=== PATIENT | female | born 1960 | race Caucasian/White ===

== ENCOUNTER 2017-06-26 12:33 | Emergency (ER) | payer BC, OTHER ==
--- NOTE | 2017-06-26 12:46 | EDM.PDOC ---
ED HPI GENERAL MEDICAL PROBLEM - General Chief Complaint: Chest Pain Stated Complaint: CHEST PAIN Time Seen by Provider: 06/26/17 12:46 Source of Information: Reports: Patient History Limitations: Reports: No Limitations - History of Present Illness INITIAL COMMENTS - FREE TEXT/NARRATIVE: Patient is a 57 y/o female who presents to the E.D. c/o of pain to just under the left breast. Pain is constant dull in nature. Pain radiates to her back. No known precipitating factor that make the pain worse or better. Has been taking tylenol with some relief. Patient states she is a anxious person. Drinks about 8-10 beers starting in the afternoon daily. She smokes 1.5 packs of cigarettes daily. History of HTN and takes lisinopril and amlodipine. States last drink was last night. She is craving for a beer as we speak. She has been in treatment for alcohol three different times. Has no history of CAD. Denies SOB, Dizziness, palpitations, abdominal pain, acid reflux, dysuria , or history of pancreatitis. 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 Left Chest Pain Score (Numeric/FACES): 10 - Related Data Allergies Allergy/AdvReac Type Severity Reaction Status Date / Time azithromycin Allergy Rash Verified 06/26/17 12:42 Home Meds: Home Meds Lisinopril 20 mg PO DAILY 06/26/17 [History] amLODIPine Besylate [Amlodipine Besylate] 5 mg PO DAILY 06/26/17 [History] Past Medical History Cardiovascular History: Reports: Hypertension - Past Surgical History HEENT Surgical History: Reports: Eye Surgery Female Surgical History: Reports: Hysterectomy Social & Family History - Tobacco Use Smoking Status *Q: Current Every Day Smoker Years of Tobacco use: 20 Packs/Tins Daily: 1.5 - Caffeine Use Caffeine Use: Reports: Coffee - Alcohol Use Days Per Week of Alcohol Use: 7 Number of Drinks Per Day: 8 Total Drinks Per Week: 56 - Recreational Drug Use Recreational Drug Use: No ED ROS GENERAL - Review of Systems Review Of Systems: ROS reveals no pertinent complaints other than HPI. ED EXAM, GENERAL - Physical Exam Exam: See Below Exam Limited By: No Limitations General Appearance: Alert, WD/WN, Anxious Ears: Normal External Exam, Hearing Grossly Normal Nose: Normal Inspection Throat/Mouth: Normal Inspection, Normal Oropharynx, Normal Voice, No Airway Compromise Neck: Normal Inspection, Supple Respiratory/Chest: No Respiratory Distress, Lungs Clear, Normal Breath Sounds, No Accessory Muscle Use, Other (Pain noted to the left anterior chest and under the left breast worse with palpation. No bony abnormalities. No bruising. No swelling. No rash present. No open sores present.) Cardiovascular: Normal Peripheral Pulses, No Edema, No Murmur, Tachycardia Peripheral Pulses: 3+: Posterior Tibial (L), Posterior Tibial (R), 4+: Radial (L ), Radial (R) GI/Abdominal: Normal Bowel Sounds, Soft, Non-Tender, No Organomegaly, No Distention Back Exam: Normal Inspection Extremities: Normal Inspection, Normal Range of Motion, Non-Tender, No Pedal Edema Neurological: Alert, Oriented, CN II-XII Intact, Normal Cognition, No Motor/ Sensory Deficits Psychiatric: Normal Affect, Anxious Skin Exam: Warm, Dry, Intact, Normal Color Course - Vital Signs Last Recorded V/S: Last Vital Signs Temp 97.2 F 06/26/17 12:37 Pulse 131 H 06/26/17 12:37 Resp 12 06/26/17 12:37 BP 197/114 H 06/26/17 12:37 Pulse Ox 100 06/26/17 12:37 - Orders/Labs/Meds Labs: Laboratory Tests 06/26/17 06/26/17 06/26/17 Range/Units 12:42 12:42 12:42 WBC 5.56 (3.98-10.04) K/mm3 RBC 4.30 (3.98-5.22) M/mm3 Hgb 14.8 (11.2-15.7) gm/L Hct 41.7 (34.1-44.9) % MCV 97.0 H (79.4-94.8) fl MCH 34.4 H (25.6-32.2) pg MCHC 35.5 (32.2-35.5) g/dl RDW Std Deviation 39.8 (36.4-46.3) fL Plt Count 159 L (182-369) K/mm3 MPV 10.5 (9.4-12.3) fl Neut % (Auto) 39.8 (34.0-71.1) % Lymph % (Auto) 49.3 (19.3-51.7) % [place] % (Auto) 8.5 (4.7-12.5) % Eos % (Auto) 1.3 (0.7-5.8) Baso % (Auto) 1.1 (0.1-1.2) % Neut # (Auto) 2.22 (1.56-6.13) K/mm3 Lymph # (Auto) 2.74 (1.18-3.74) K/mm3 Hardeman # (Auto) 0.47 H (0.24-0.36) K/mm3 Eos # (Auto) 0.07 (0.04-0.36) K/mm3 Baso # (Auto) 0.06 (0.01-0.08) K/mm3 PT 10.7 (8.0-13.0) SECONDS INR 1.00 APTT 29 (22-36) SECONDS D-Dimer, Quantitative < 0.19 L (0.19-0.59) mg/L Sodium 132 L (136-145) mEq/L Potassium 4.1 (3.5-5.1) mEq/L Chloride 96 L (98-107) mEq/L Carbon Dioxide 26 (21-32) mEq/L Anion Gap 14.1 (5-15) BUN 8 (7-18) mg/dL Creatinine 0.6 (0.55-1.02) mg/dL Est Cr Clr Drug Dosing 85.72 mL/min Estimated GFR (MDRD) > 60 (>60) mL/min BUN/Creatinine Ratio 13.3 L (14-18) Glucose 141 H (74-106) mg/dL Calcium 9.6 (8.5-10.1) mg/dL Magnesium 1.9 (1.8-2.4) mg/dl Total Bilirubin 0.7 (0.2-1.0) mg/dL AST 171 H (15-37) U/L ALT 202 H (14-59) U/L Alkaline Phosphatase 142 H (46-116) U/L Troponin I < 0.017 (0.00-0.056) ng/mL Total Protein 9.0 H (6.4-8.2) g/dl Albumin 4.3 (3.4-5.0) g/dl Globulin 4.7 gm/dL Albumin/Globulin Ratio 0.9 L (1-2) Lipase 118 (73-393) U/L TSH 3rd Generation 3.043 (0.358-3.74) uIU/mL Urine Color (Yellow) Urine Appearance (Clear) Urine pH (5.0-8.0) Ur Specific [place] (1.005-1.030) Urine Protein (Negative) Urine Glucose (UA) (Negative) Urine Ketones (Negative) Urine Occult Blood (Negative) Urine Nitrite (Negative) Urine Bilirubin (Negative) Urine Urobilinogen (0.2-1.0) Ur Leukocyte Esterase (Negative) Urine RBC (0-5) /hpf Urine WBC (0-5) /hpf Ur Epithelial Cells (0-5) /hpf Urine Bacteria (FEW) /hpf Urine Mucus (FEW) /hpf Urine Opiates Screen (NEGATIVE) Ur Buprenorphine Scrn (NEGATIVE) Ur Oxycodone Screen (NEGATIVE) Urine Methadone Screen (NEGATIVE) Ur Propoxyphene Screen (NEGATIVE) Ur Barbiturates Screen (NEGATIVE) Ur Tricyclics Screen (NEGATIVE) Ur Phencyclidine Scrn (NEGATIVE) Ur Amphetamine Screen (NEGATIVE) U Methamphetamines Scrn (NEGATIVE) U Benzodiazepines Scrn (NEGATIVE) U Cocaine Metab Screen (NEGATIVE) U Marijuana (THC) Screen (NEGATIVE) Ethyl Alcohol (0.00) gm% 06/26/17 06/26/17 06/26/17 Range/Units 12:42 14:23 14:23 WBC (3.98-10.04) K/mm3 RBC (3.98-5.22) M/mm3 Hgb (11.2-15.7) gm/L Hct (34.1-44.9) % MCV (79.4-94.8) fl MCH (25.6-32.2) pg MCHC (32.2-35.5) g/dl RDW Std Deviation (36.4-46.3) fL Plt Count (182-369) K/mm3 MPV (9.4-12.3) fl Neut % (Auto) (34.0-71.1) % Lymph % (Auto) (19.3-51.7) % Hardeman % (Auto) (4.7-12.5) % Eos % (Auto) (0.7-5.8) Baso % (Auto) (0.1-1.2) % Neut # (Auto) (1.56-6.13) K/mm3 Lymph # (Auto) (1.18-3.74) K/mm3 Hardeman # (Auto) (0.24-0.36) K/mm3 Eos # (Auto) (0.04-0.36) K/mm3 Baso # (Auto) (0.01-0.08) K/mm3 PT (8.0-13.0) SECONDS INR APTT (22-36) SECONDS D-Dimer, Quantitative (0.19-0.59) mg/L Sodium (136-145) mEq/L Potassium (3.5-5.1) mEq/L Chloride (98-107) mEq/L Carbon Dioxide (21-32) mEq/L Anion Gap (5-15) BUN (7-18) mg/dL Creatinine (0.55-1.02) mg/dL Est Cr Clr Drug Dosing mL/min Estimated GFR (MDRD) (>60) mL/min BUN/Creatinine Ratio (14-18) Glucose (74-106) mg/dL Calcium (8.5-10.1) mg/dL Magnesium (1.8-2.4) mg/dl Total Bilirubin (0.2-1.0) mg/dL AST (15-37) U/L ALT (14-59) U/L Alkaline Phosphatase (46-116) U/L Troponin I (0.00-0.056) ng/mL Total Protein (6.4-8.2) g/dl Albumin (3.4-5.0) g/dl Globulin gm/dL Albumin/Globulin Ratio (1-2) Lipase (73-393) U/L TSH 3rd Generation (0.358-3.74) uIU/mL Urine Color Yellow (Yellow) Urine Appearance Clear (Clear) Urine pH 7.0 (5.0-8.0) Ur Specific [place] 1.015 (1.005-1.030) Urine Protein Negative (Negative) Urine Glucose (UA) Negative (Negative) Urine Ketones Negative (Negative) Urine Occult Blood Negative (Negative) Urine Nitrite Negative (Negative) Urine Bilirubin Negative (Negative) Urine Urobilinogen 0.2 (0.2-1.0) Ur Leukocyte Esterase Negative (Negative) Urine RBC 0-5 (0-5) /hpf Urine WBC 0-5 (0-5) /hpf Ur Epithelial Cells 0-5 (0-5) /hpf Urine Bacteria Few (FEW) /hpf Urine Mucus Not seen (FEW) /hpf Urine Opiates Screen Negative (NEGATIVE) Ur Buprenorphine Scrn Negative (NEGATIVE) Ur Oxycodone Screen Negative (NEGATIVE) Urine Methadone Screen Negative (NEGATIVE) Ur Propoxyphene Screen Negative (NEGATIVE) Ur Barbiturates Screen Negative (NEGATIVE) Ur Tricyclics Screen Negative (NEGATIVE) Ur Phencyclidine Scrn Negative (NEGATIVE) Ur Amphetamine Screen Negative (NEGATIVE) U Methamphetamines Scrn Negative (NEGATIVE) U Benzodiazepines Scrn Negative (NEGATIVE) U Cocaine Metab Screen Negative (NEGATIVE) U Marijuana (THC) Screen Negative (NEGATIVE) Ethyl Alcohol 0.00 (0.00) gm% Meds: Medications Discontinued Medications Generic Name Dose Route Start Last Admin Trade Name Freq PRN Reason Stop Dose Admin Aspirin 324 mg 06/26/17 12:57 06/26/17 13:19 Aspirin PO 06/26/17 12:58 324 mg ONETIME ONE Administration Al Hydroxide/Mg Hydroxide 30 0 ml 06/26/17 13:02 06/26/17 13:21 ml/ Lidocaine HCl 15 ml PO 06/26/17 13:03 45 ml ONETIME ONE Administration Hydromorphone HCl 0.5 mg 06/26/17 13:00 06/26/17 13:16 Dilaudid IVPUSH 06/26/17 13:01 0.5 mg ONETIME ONE Administration Sodium Chloride 1,000 mls @ 1,000 mls/hr 06/26/17 13:00 06/26/17 13:20 Normal Saline IV 1,000 mls/hr .BOLUS ARMANDO Administration Lorazepam 0.5 mg 06/26/17 13:00 06/26/17 13:13 Ativan IVPUSH 06/26/17 13:01 0.5 mg ONETIME ONE Administration Sodium Chloride 10 ml 06/26/17 12:57 06/26/17 13:22 Saline Flush FLUSH 10 ml ASDIRECTED PRN Administration Keep Vein Open - Re-Assessments/Exams Free Text/Narrative Re-Assessment/Exam: Peripheral IV established with normal saline 999 MLS per hour, Dilaudid 0.5 mg IVP, and Ativan 0.5 mg IVP. Initial lab studies include CBC, chem 14, d-dimer, urine drug tox, coag studies , lipase, magnesium, troponin, serum etoh, TSH, UA, d-dimer, chest x-ray one view, and EKG. EKG sinus rhythm at a rate of [address] changes noted. 06/26/17 13:33 Chest x-ray did not reveal any acute abnormalities. Findings suspicious for COPD with flattening diaphragm and hyperinflation. 06/26/17 15:19 Labs reviewed: Sodium 132, potassium 4.1, crit 0.6, glucose 141, LFTs are elevated chronic per patient, troponin less than 0.017, lipase 118, TSH 3.03, CBC was essentially normal, INR 1.0, d-dimer less than 0.19, UA negative for infection, serum EtOH 0, urine drug tox negative. 1415 BP 137/80, HR 73 Patient's vital signs trending downward with the above therapies. She is feeling much better at this time. Pain is gone at this point. She is wishing be discharged home. Discussed with the patient and seeking help for alcohol abuse and also quitting smoking. Patient's undergone alcohol treatment 3 times and understands that she needs to quit. She will follow-up with her primary care provider next week for reevaluation. Return precautions discussed with the patient. Discharge instructions as documented. Departure - Departure Time of Disposition: 15:20 Disposition: Home, Self-Care 01 Condition: Good Clinical Impression: Atypical chest pain Instructions: Chest Wall Pain, [id number], Nonspecific Chest Pain, Chest Wall Pain Referrals: Rosa York NP [Primary Care Provider] - Forms: ED Department Discharge Additional Instructions: Seek help for alcohol dependency and quit smoking. Refrain from any activities that cause worsening pain. Utilize Aleve 1-2 tabs twice a day for discomfort. Follow-up with your primary care provider in the next week for reevaluation. Return to the ED if you develop any new or worsening symptoms. no driving today since receiving a sedative medication.
[2017-06-26] MEDS ORDERED: Sodium Chloride 0.9% 10 ML Syringe FLUSH PRN (12:57)
[2017-06-26] MEDS ORDERED: Aspirin 81 MG Tab.Chew PO ONE (12:57)
[2017-06-26] MEDS ORDERED: Sodium Chloride 0.9% 1,000 ML IV SCH (13:00)
[2017-06-26] MEDS ORDERED: HYDROmorphone 0.5 MG/0.5 ML SYRINGE IVPUSH ONE (13:00)
[2017-06-26] MEDS ORDERED: LORazepam 2 MG/ML SDV IVPUSH ONE (13:00)
[2017-06-26] MEDS ORDERED: Alum Hydrox/Mag Hydrox/Simeth 30 ML, Lidocaine 2% 15 ML PO ONE ×2 (13:02)
--- NOTE | 2017-06-26 15:52 | CR ---
Chest: Frontal view of the chest was obtained. Comparison: No previous study. Heart size and mediastinum are normal. Lungs are clear. Bony structures are grossly intact. Impression: 1. Nothing acute is identified on frontal chest x-ray. Diagnostic code #1
== END 2017-06-26 15:30 | disposition home or self-care (01) ==
LOC: JD.ED 12:33
DX: R07.89 Other chest pain (principal); F17.210 Nicotine dependence, cigarettes, uncomplicated; I10 Essential (primary) hypertension; Z88.1 Allergy status to other antibiotic agents; Z79.899 Other long term (current) drug therapy
CPT/HCPCS: 36415; 71045; 80053; 80306; 81001; 83690; 83735; 84443; 84484; 85025; 85379; 85610; 85730; 96361; 96374; 96375; 99285; A9270; G0480; J1170; J2060; J7040; J7050; 99284

== ENCOUNTER 2017-12-22 20:20 | Emergency (ER) | payer OTHER ==
[2017-12-22] MEDS ORDERED: Penicillin V Potassium 500 MG Tab PO STA (21:17)
--- NOTE | 2017-12-22 21:24 | EDM.PDOC ---
ED HPI GENERAL MEDICAL PROBLEM - General Chief Complaint: ENT Problem Stated Complaint: tooth pain Time Seen by Provider: 12/22/17 21:03 Source of Information: Reports: Patient, Family (Daughter) History Limitations: Reports: No Limitations - History of Present Illness INITIAL COMMENTS - FREE TEXT/NARRATIVE: The patient states that she received 2 upper left fillings and one tooth extraction this past 12/17/2017, with the plan to extract 3 additional upper teeth in a few weeks. The patient states that she saw swelling and purulent drainage from her upper right mouth this morning. No recent fever. No taste of an oral drainage. No injury to the area. The patient smells of alcohol, and admits that she has had 6 drinks tonight. The patient's PCP is Rosa York. - Related Data Allergies Allergy/AdvReac Type Severity Reaction Status Date / Time azithromycin Allergy Rash Verified 12/22/17 20:33 Home Meds: Home Meds Lisinopril 20 mg PO DAILY 06/26/17 [History] amLODIPine Besylate [Amlodipine Besylate] 5 mg PO DAILY 06/26/17 [History] Penicillin V Potassium 1 tab PO Q6HR #40 tab 12/22/17 [Rx] Past Medical History Cardiovascular History: Reports: Hypertension - Past Surgical History HEENT Surgical History: Reports: Eye Surgery (left tearduct), Oral Surgery ( wisdom teeth extraction), Tonsillectomy Female Surgical History: Reports: Hysterectomy Social & Family History - Family History Family Medical History: Noncontributory - Tobacco Use Smoking Status *Q: Current Every Day Smoker Years of Tobacco use: 23 Packs/Tins Daily: 1 - Caffeine Use Caffeine Use: Reports: Coffee - Alcohol Use Alcohol Use History: Yes Alcohol Use Frequency: Socially (occasionally to excess) - Recreational Drug Use Recreational Drug Use: No - Living Situation & Occupation Living situation: Reports: Single, with Significant Other (Boyfriend) 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 ED EXAM, ENT - Physical Exam Exam: See Below Exam Limited By: No Limitations General Appearance: Alert, WD/WN, No Apparent Distress Eye Exam: Bilateral Eye: EOMI, Normal Inspection Ears: Normal External Exam, Normal Canal, Hearing Grossly Normal, Normal TMs Nose: Normal Inspection, Normal Mucousa, No Blood Mouth/Throat: Normal Inspection, Normal Lips, Other (Teeth #1, 2 absent. Teeth # 3, 4 (the area of concern) deeply carious. There appears to be a burst abscess on the buccal aspect of the gingiva superior to tooth #4. Tooth #5 with hand box coverer geovanna. Tooth #12 with filling. Tooth #13 absent. Tooth #14 with filling and cap. Teeth #15, 16 absent. Tooth #17 absent. Tooth #18 with filling and cap. Teeth #19, 20 absent. Tooth #21 with fillings. Tooth #29 with filling. Tooth #30 with filling and cap.) Head: Atraumatic, Normocephalic. No: Facial Swelling Neck: Normal Inspection, Supple, Non-Tender, Full Range of Motion. No: Lymphadenopathy (L), Lymphadenopathy (R) Course - Vital Signs Last Recorded V/S: Last Vital Signs Temp 36.5 C 12/22/17 20:25 Pulse 80 12/22/17 20:25 Resp 18 12/22/17 20:25 BP 155/92 H 12/22/17 20:25 Pulse Ox 99 12/22/17 20:25 - Orders/Labs/Meds Meds: Medications Discontinued Medications Generic Name Dose Route Start Last Admin Trade Name Freq PRN Reason Stop Dose Admin Penicillin V Potassium 1,000 mg 12/22/17 21:17 12/22/17 21:25 Veetids PO 12/22/17 21:18 1,000 mg ONETIME STA Administration - Re-Assessments/Exams Free Text/Narrative Re-Assessment/Exam: 12/22/17 21:18 The patient appears to have an abscess in the gingiva over tooth #4, however, it appears to have already burst. I will start the patient on oral penicillin, one tablet now, then a second tablet to be taken around 3:00 this morning, and I will send in a prescription for 10 day course. I recommended to the patient that she contact her dentist first thing in the morning to arrange to be seen. Departure - Departure Time of Disposition: 21:19 Disposition: Home, Self-Care 01 Condition: Good Clinical Impression: Dental abscess - Discharge Information *PRESCRIPTION DRUG MONITORING PROGRAM REVIEWED*: Not Applicable *COPY OF PRESCRIPTION DRUG MONITORING REPORT IN PATIENT JEN: Not Applicable Prescriptions: Penicillin V Potassium 1 tab PO Q6HR #40 tab Instructions: Dental Abscess, [id number] Referrals: Rosa York NP [Primary Care Provider] - Forms: ED Department Discharge Additional Instructions: You were seen in the emergency room for a painful swelling to upper right gum. On evaluation, you appear to have an abscess over tooth #4, which appears to have already popped. You have been started on the antibiotic penicillin. A tablet was sent home with you, which should be taken around 3:00 AM. A prescription has been sent to the [facility], [address], [place]. Take one tablet every 6 hours, as prescribed. Finish the entire prescription unless told otherwise by your dentist. Take [id number] ibuprofen, 2-3 tablets (400-600 mg) every 8 hours, with food, as needed for pain. Contact your dentist first thing tomorrow morning, to arrange to be seen as soon as possible. If any other problems, please do not hesitate to return to the ER.
== END 2017-12-22 21:31 | disposition home or self-care (01) ==
LOC: JD.ED 20:20
DX: K04.7 Periapical abscess without sinus (principal); F17.210 Nicotine dependence, cigarettes, uncomplicated; Z88.1 Allergy status to other antibiotic agents; Z79.899 Other long term (current) drug therapy
CPT/HCPCS: 99282; A9270; 99283

== ENCOUNTER 2019-02-12 11:41 | Emergency (ER) | payer MEDICAID, OTHER ==
[2019-02-12] MEDS ORDERED: Sodium Chloride 0.9% 10 ML Syringe FLUSH PRN (12:00)
--- NOTE | 2019-02-12 12:04 | EDM.PDOC ---
ED HPI GENERAL MEDICAL PROBLEM - General Chief Complaint: Cardiovascular Problem Stated Complaint: NOSE BLEED,DIZZY AND HIGH BP Time Seen by Provider: 02/12/19 11:59 Source of Information: Reports: Patient History Limitations: Reports: No Limitations - History of Present Illness INITIAL COMMENTS - FREE TEXT/NARRATIVE: 58-year-old female who appears quite anxious presents to the ED claiming that she's had recurrent nosebleeds primarily from the right side of her nose off and on for the last 3 days. Woke up to a nosebleed 3 nights ago. Then she started to check her blood pressures and found that they were elevated particularly on the systolic side she believes 167-176. Tended the walk-in clinic this morning and they found her to have a elevated blood pressure and centered to the ED. Initial blood pressure here was 191/105. Again the patient is quite anxious. She is already on lisinopril 20 mg once daily and Norvasc 5 mg once daily for blood pressure control which she estimated she's been on for greater than 10 years. Complains of a diffuse headache fullness in her head and trouble thinking. No nausea or vomiting. She feels a pressure in her ears but no true vertigo symptoms. Onset: Gradual (Non-for the last 3 days.), Other (Elevated blood pressure appreciated 3 days ago and again today.) Onset Date: 02/09/19 Duration: Day(s):, Intermittent, Waxing/Waning Location: Reports: Face (Occurprimarily from the right side of her naris.), Other (Elevated blood pressure) Quality: Reports: Other (Fullness pressure sensation in her head with a feeling of trouble thinking or focusing.) Severity: Moderate Improves with: Reports: None Worsens with: Reports: None Context: Denies: Activity, Exercise, Lifting, Sick Contact, Trauma, Other Associated Symptoms: Reports: Cough, cough w sputum, Malaise, Weakness, Other ( Recurrent nosebleeds). Denies: Chest Pain, Diaphoresis, Fever/Chills, Headaches (Smoker's cough.), Loss of Appetite, Nausea/Vomiting, Rash, Seizure, Shortness of Breath, Syncope Head Pain Score (Numeric/FACES): 9 - Related Data Allergies Allergy/AdvReac Type Severity Reaction Status Date / Time azithromycin Allergy Rash Verified 02/12/19 11:51 Home Meds: Home Meds Lisinopril 20 mg PO DAILY 06/26/17 [History] amLODIPine Besylate [Amlodipine Besylate] 5 mg PO DAILY 06/26/17 [History] Past Medical History HEENT History: Reports: Other (See Below) Other HEENT History: teeth missing, caries Cardiovascular History: Reports: Heart Murmur, Hypertension - Past Surgical History HEENT Surgical History: Reports: Eye Surgery, Oral Surgery, Tonsillectomy Female Surgical History: Reports: Hysterectomy Social & Family History - Family History Family Medical History: Noncontributory - Tobacco Use Smoking Status *Q: Current Every Day Smoker Years of Tobacco use: 20 Packs/Tins Daily: 1 - Caffeine Use Caffeine Use: Reports: Coffee - Living Situation & Occupation Living situation: Reports: Single, with Significant Other (Boyfriend) 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 Denies: Fever, Chills HEENT: Reports: Nosebleed (ML is from the right side but occasionally from the left side as well.), Rhinitis. Denies: Sinus Problem, Throat Pain, Throat Swelling Respiratory: Reports: Shortness of Breath, Cough. Denies: Wheezing, Pleuritic Chest Pain Cardiovascular: Reports: Blood Pressure Problem, Dyspnea on Exertion (Diagnosis and head.), Lightheadedness, Other. Denies: Chest Pain (Smoker's cough.), Claudication, Edema, Orthopnea Endocrine: Reports: Fatigue GI/Abdominal: Reports: No Symptoms : Reports: No Symptoms Musculoskeletal: Reports: Neck Pain Skin: Reports: No Symptoms (Neck pressure discomfort.) Neurological: Reports: Headache, Other (Sure left frontal forehead area today.) Psychiatric: Reports: Anxiety Hematologic/Lymphatic: Reports: No Symptoms Immunologic: Reports: No Symptoms ED EXAM, GENERAL - Physical Exam Exam: See Below Exam Limited By: No Limitations General Appearance: Alert, WD/WN, Anxious, Moderate Distress, Other (Patient appears quite anxious this time. Temperature is 36.6. Bedside heart rate was 108. Respiratory rate of 20 sats of 100% BP 180 11/13/04. Over shortly thereafter the blood pressure came down to 1 5799.) Eye Exam: Bilateral Eye: Normal Inspection, PERRL Ears: Normal TMs Nose: Other ([place] has erythematous nasal mucosa both anterior nasal septum is like a cobblestone street. I can see what is been some active bleeding from the right anterior naris square it would be picked at. Ears to have an underlying chronic allergic rhinitis.) Throat/Mouth: Normal Inspection ( Glucose is quite thin as well.), Normal Lips, Normal Oropharynx Head: Atraumatic, Normocephalic Neck: Normal Inspection, Supple, Non-Tender, Full Range of Motion Respiratory/Chest: No Respiratory Distress, Lungs Clear, Normal Breath Sounds, No Accessory Muscle Use Cardiovascular: Normal Peripheral Pulses, Regular Rate, Rhythm, No Edema, No Gallop, No Murmur, No Rub Peripheral Pulses: 3+: Posterior Tibial (L), Posterior Tibial (R), Dorsalis Pedis (L), Dorsalis Pedis (R) Extremities: Normal Inspection, Normal Range of Motion, Non-Tender, No Pedal Edema Neurological: Alert, Oriented, CN II-XII Intact, Normal Cognition, Normal Gait, No Motor/Sensory Deficits Psychiatric: Anxious Skin Exam: Warm, Dry, Intact, Normal Color, No Rash Course - Vital Signs Last Recorded V/S: Last Vital Signs Temp 36.6 C 02/12/19 11:48 Pulse 108 H 02/12/19 11:48 Resp 20 02/12/19 11:48 BP 188/105 H 02/12/19 11:48 Pulse Ox 100 02/12/19 11:48 - Orders/Labs/Meds Orders: Active Orders 24 hr Category Date Time Status Peripheral IV Care [RC] . DIRECTED Care 02/12/19 12:00 Active COMPREHENSIVE METABOLIC PN,CMP [CHEM] Stat Lab 02/12/19 12:15 Received Sodium Chloride 0.9% [Saline Flush] Med 02/12/19 12:00 Active 10 ml FLUSH ASDIRECTED PRN Peripheral IV Insertion Adult [OM.PC] Stat Oth 02/12/19 12:00 Ordered Medication Orders Sodium Chloride (Saline Flush) 10 ml FLUSH ASDIRECTED PRN PRN Reason: Keep Vein Open Last Admin: 02/12/19 12:17 Dose: 10 ml Labs: Laboratory Tests 02/12/19 Range/Units 12:15 WBC 4.18 (3.98-10.04) K/mm3 RBC 3.22 L (3.98-5.22) M/mm3 Hgb 10.9 L D (11.2-15.7) gm/dl Hct 31.6 L (34.1-44.9) % MCV 98.1 H (79.4-94.8) fl MCH 33.9 H (25.6-32.2) pg MCHC 34.5 (32.2-35.5) g/dl RDW Std Deviation 40.4 (36.4-46.3) fL Plt Count 176 L (182-369) K/mm3 MPV 9.6 (9.4-12.3) fl Neut % (Auto) 47.6 (34.0-71.1) % Lymph % (Auto) 40.4 (19.3-51.7) % Leslie % (Auto) 9.1 (4.7-12.5) % Eos % (Auto) 1.7 (0.7-5.8) Baso % (Auto) 1.2 (0.1-1.2) % Neut # (Auto) 1.99 (1.56-6.13) K/mm3 Lymph # (Auto) 1.69 (1.18-3.74) K/mm3 Leslie # (Auto) 0.38 H (0.24-0.36) K/mm3 Eos # (Auto) 0.07 (0.04-0.36) K/mm3 Baso # (Auto) 0.05 (0.01-0.08) K/mm3 Meds: Medications Generic Name Dose Route Start Last Admin Trade Name Freq PRN Reason Stop Dose Admin Sodium Chloride 10 ml 02/12/19 12:00 02/12/19 12:17 Saline Flush FLUSH 10 ml ASDIRECTED PRN Administration Keep Vein Open - Radiology Interpretation Free Text/Narrative:: 58-year-old female presents to the ED with an elevated blood pressure and history of recurrent intermittently nosebleeds primarily from the right side for the last 3 days. Patient has a chronic hypertensive problem and is on lisinopril 20 g once daily and Norvasc 5 mg once daily for blood pressure control. At home she found her blood pressures to be elevated systolically primarily between 167 and/176 which is high for her. She went to the walk-in clinic this morning and they also identified an elevated blood pressure and probably centered to the ED. Course she was quite anxious upon arrival and blood pressure initially was 191/105. Plan I will watch it for. Of time and see if she requires any medication. In the meantime routine labs will be obtained and a saline lock started. Nosebleeds she has erythematous mucosa bilaterally and I can see an area that is been actively bleeding from the right very anterior nares like it may have been knicked by a fingernail. Plan she will be on observation for a period of time to see if she requires aggressive management of her blood pressure. I'm going to cauterize the anterior septums bilaterally to prevent further nosebleeds and then use Polysporin ointment every night at bedtime with aid of a Q-tip. - Re-Assessments/Exams Free Text/Narrative Re-Assessment/Exam: 02/12/19 12:32 pressure came down to 155/85. Patient will be monitored but at this time does not appear to be in need of any aggressive management of her hypertension. Post anterior nasal septum I were cauterized with silver nitrate. Will monitor for the next half hour or so. 02/12/19 12:56 Labs reveal a normal white count at 4.18 hemoglobin is slightly low at 10.9 with hematocrit of 31.6. MCV slightly elevated at 98.1. Platelet count 176,000.Blood pressures down to 139/79. On recheck no active bleeding from either naris at sites of cauterization. Patient will be discharged to continue current blood pressure regimen. I'm going to Have Her Pl., Polysporin by Q-tip into each side of her nose at bedtime for one week and then stop use it twice weekly Saturday and Saturday nights over the winter months. She will also move her humidifier up into her sleeping quarters at nighttime. Is a follow -up appoint with her primary care physician provider in 2 weeks time for blood pressure review. Departure - Departure Time of Disposition: 13:05 Disposition: Home, Self-Care 01 Reason for Transfer *Q: Other Condition: Fair Clinical Impression: Anterior epistaxis, Labile essential hypertension Referrals: Cecile Nuno NP [Primary Care Provider] - Forms: ED Department Discharge Additional Instructions: Evaluation the emergency room today in regards to recurrent nosebleeds over the last 3 days particular a from the right side and then also oozing from the left side. It stopped at the time he was seen in the ED but sites of bleeding were quite apparent on examination. Therefore both anterior naris underwent cauterization with silver nitrate in the hopes of preventing further bleeding. A pressure noted to be markedly elevated at home and on initial presentation to the ED primarily due to anxiety produce because of the nosebleeds. Her blood pressure in the ED revealed it to come down to normal at 139/85. For now no changes to medications are required. Your blood work did reveal that she can have mild anemia with a hemoglobin of 10.9. Follow-up with your primary care provider in 2 weeks as planned for comparison of hemoglobin done previously. Urinalysis was cauterized in the ED at sites of noted bleeding. Treatment is to use Polysporin ointment every night applied to the anterior nasal septum on each side for the next week. Use a Q-tip to apply the ointment to the lining of your nose in an up-and-down fashion. It may make you feel plugged up for a period of time but after 10 minutes it now said body temperature and a glabellar breathe through nose normally. Suggesting this for the next week and then suggest Saturday and Saturday nights throughout the winter months to help prevent further nosebleeds. - My Orders Last 24 Hours: My Active Orders 02/12/19 12:00 Peripheral IV Care [RC] . DIRECTED Sodium Chloride 0.9% [Saline Flush] 10 ml FLUSH ASDIRECTED PRN Peripheral IV Insertion Adult [OM.PC] Stat 02/12/19 12:15 COMPREHENSIVE METABOLIC PN,CMP [CHEM] Stat - Assessment/Plan Last 24 Hours: My Active Orders 02/12/19 12:00 Peripheral IV Care [RC] . DIRECTED Sodium Chloride 0.9% [Saline Flush] 10 ml FLUSH ASDIRECTED PRN Peripheral IV Insertion Adult [OM.PC] Stat 02/12/19 12:15 COMPREHENSIVE METABOLIC PN,CMP [CHEM] Stat ED EPISTAXIS PROCEDURES - Epistaxis Procedure Indication: Epistaxis, Controlled Recent anticoagulants/antiplatlets: No Uncontrolled HTN: Yes Recent septal/nasal surgery: No Site of bleeding: Right Nare Clearing of clots: Patient Blew Nose Ice pack to area: No Chemical cautery: Silver Nitrate Topical (Both anterior nasal septum is.)
== END 2019-02-12 13:20 | disposition home or self-care (01) ==
LOC: JD.ED 11:41
DX: R04.0 Epistaxis (principal); I10 Essential (primary) hypertension; F17.210 Nicotine dependence, cigarettes, uncomplicated; Z88.1 Allergy status to other antibiotic agents; Z79.899 Other long term (current) drug therapy
CPT/HCPCS: 30901; 36415; 80053; 85025; 99283

== ENCOUNTER 2019-02-19 20:17 | Emergency (ER) | payer MEDICAID ==
--- NOTE | 2019-02-19 21:27 | EDM.PDOC ---
ED HPI GENERAL MEDICAL PROBLEM - General Chief Complaint: ENT Problem Stated Complaint: BLOODY NOSE Time Seen by Provider: 02/19/19 20:51 Source of Information: Reports: Patient, Old Records, RN Notes Reviewed History Limitations: Reports: No Limitations - History of Present Illness INITIAL COMMENTS - FREE TEXT/NARRATIVE: Patient is a 58-year-old female who presents to the ED for evaluation of a nosebleed. Patient notes she was most recently here on Halloween night for a nosebleed, and she had cautery done to both nostrils. Patient notes she is not had any issues with this until around 1 PM today, and she felt that her left nostril started tripping and losing blood again. She believes that the blood is dripping at the back of her throat. 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 Forehead Pain Score (Numeric/FACES): 8 - Related Data Allergies Allergy/AdvReac Type Severity Reaction Status Date / Time azithromycin Allergy Rash Verified 02/19/19 20:50 Home Meds: Home Meds Lisinopril 20 mg PO DAILY 06/26/17 [History] amLODIPine Besylate [Amlodipine Besylate] 5 mg PO DAILY 06/26/17 [History] Past Medical History HEENT History: Reports: Other (See Below) Other HEENT History: teeth missing, caries Cardiovascular History: Reports: Heart Murmur, Hypertension - Past Surgical History HEENT Surgical History: Reports: Eye Surgery, Oral Surgery, Tonsillectomy Female Surgical History: Reports: Hysterectomy Social & Family History - Family History Family Medical History: Noncontributory - Tobacco Use Smoking Status *Q: Current Every Day Smoker Years of Tobacco use: 36 Packs/Tins Daily: 1 - Caffeine Use Caffeine Use: Reports: None - Recreational Drug Use Recreational Drug Use: Yes Recreational Drug Type: Reports: Marijuana/Hashish Recreational Drug Use Frequency: Socially - Living Situation & Occupation Living situation: Reports: Single, with Significant Other (Boyfriend) 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 Denies: Lightheadedness Endocrine: Reports: No Symptoms GI/Abdominal: Reports: No Symptoms : Reports: No Symptoms Musculoskeletal: Reports: No Symptoms Skin: Reports: No Symptoms Neurological: Denies: Dizziness, Headache Psychiatric: Reports: No Symptoms Hematologic/Lymphatic: Reports: No Symptoms Immunologic: Reports: No Symptoms ED EXAM, ENT - Physical Exam Exam: See Below Exam Limited By: No Limitations General Appearance: Alert, WD/WN, No Apparent Distress Eye Exam: Bilateral Eye: EOMI, Normal Inspection, PERRL Ears: Normal External Exam, Normal Canal, Hearing Grossly Normal, Normal TMs Nose: Normal Inspection, Normal Mucousa, Active Bleeding (On the left medial anterior nare), Dried Blood (small amount of coagulating blood noted on L medial anterior nare). No: Nasal Swelling, Septal Deformity Mouth/Throat: Normal Inspection, Normal Gums, Normal Lips, Normal Oropharynx, Normal Teeth Head: Atraumatic, Normocephalic Neck: Normal Inspection Respiratory/Chest: No Respiratory Distress, Lungs Clear, Normal Breath Sounds, No Accessory Muscle Use, Chest Non-Tender Cardiovascular: Normal Peripheral Pulses, Regular Rate, Rhythm, No Murmur GI/Abdominal: Normal Bowel Sounds, Soft, Non-Tender, No Distention, No Mass Extremities: Normal Inspection, Normal Capillary Refill Neurological: Alert, Oriented, Normal Cognition, No Motor/Sensory Deficits Psychiatric: Normal Affect, Normal Mood Skin: Warm, Dry, Intact, Normal Color, No Rash Course - Vital Signs Last Recorded V/S: Last Vital Signs Temp 97.9 F 02/19/19 20:46 Pulse 93 02/19/19 20:46 Resp 20 02/19/19 20:46 BP 195/90 H 02/19/19 20:46 Pulse Ox 100 02/19/19 20:46 - Re-Assessments/Exams Free Text/Narrative Re-Assessment/Exam: 02/19/19 21:26 Patient presents to the ED for the evaluation of a left-sided nosebleed. I did identify an area on the left anterior medial nostril of active bleeding, this was cauterized with silver nitrate sticks, after the patient gently blew her nose to dislodge the clot. This appeared to achieve pretty good hemostasis at this time, will let the patient sit for a good 10-15 minutes, and reevaluate the further need of any more cautery. 02/19/19 22:03 Patient was reassessed at bedside, and there is no active bleeding appreciated from either nare. We'll discharge home with general recommendations. Departure - Departure Time of Disposition: 22:03 Disposition: Home, Self-Care 01 Condition: Fair Clinical Impression: Epistaxis - Discharge Information *PRESCRIPTION DRUG MONITORING PROGRAM REVIEWED*: No *COPY OF PRESCRIPTION DRUG MONITORING REPORT IN PATIENT JEN: No Instructions: Nosebleed, [id number] Referrals: PCP,Not In Area [Primary Care Provider] - Forms: ED Department Discharge Additional Instructions: You were evaluated in the ER tonight regarding your left sided nose bleed. This was managed with silver nitrite cautery. This did help the nosebleed to stop. Recommend that you do not use the Polysporin in the naris tonight, due to the recent nosebleed. But you may continue this tomorrow morning. Please continue all previous discharge instructions as set forth by Dr. Amin such as increased humidification, etc. Please return to the ED if your symptoms should change or worsen.
== END 2019-02-19 22:11 | disposition home or self-care (01) ==
LOC: JD.ED 20:17
DX: R04.0 Epistaxis (principal); I10 Essential (primary) hypertension; F17.210 Nicotine dependence, cigarettes, uncomplicated; Z88.1 Allergy status to other antibiotic agents; Z79.899 Other long term (current) drug therapy
CPT/HCPCS: 30901; 99283

== ENCOUNTER 2020-08-15 10:56 | Emergency (ER) | payer MEDICAID ==
[2020-08-15] MEDS ORDERED: Sodium Chloride 0.9% 10 ML Syringe FLUSH PRN (11:37)
--- NOTE | 2020-08-15 11:38 | EDM.PDOC ---
ED HPI GENERAL MEDICAL PROBLEM - General Chief Complaint: Respiratory Problem Stated Complaint: [facility] Time Seen by Provider: 08/15/20 11:26 Source of Information: Reports: Patient, RN Notes Reviewed History Limitations: Reports: No Limitations - History of Present Illness INITIAL COMMENTS - FREE TEXT/NARRATIVE: Patient is a 60-year-old female who presents to the ER for the evaluation of her head congestion/chest congestion. She was brought by the [facility] ambulance service. Patient notes for the last week, she had a runny eye and a runny nose, which she equated to being seasonal allergies. Patient states that over the weekend, she developed green/yellow-colored nasal drainage and developed a cough with some chest congestion that has also revealed some yellow/green color to it. States she was feeling pretty rough this morning, she took 2 Coricidin tablets as she has high blood pressure, and then went to the walk-in clinic. While at the walk-in clinic, she began to feel somewhat faint and dizzy and wanted to lay down, so they sent her to the ER for further evaluation. She states she is having no chest pain, just the chest pressure/congestion that she has had all weekend. Patient is not dizzy or lightheaded at this time. She did have her regular morning routine of coffee/water/pineapple juice, she notes that she does not usually eat much for breakfast. Patient denies any issues with diabetes or other blood sugar issues. Primary care provider is at the [facility] - Related Data Allergies Allergy/AdvReac Type Severity Reaction Status Date / Time azithromycin Allergy Rash Verified 08/15/20 11:03 Home Meds: Home Meds Lisinopril 20 mg PO DAILY 06/26/17 [History] amLODIPine Besylate [Amlodipine Besylate] 5 mg PO DAILY 06/26/17 [History] Amoxicillin 500 mg PO TID 10 Days #30 tab 08/15/20 [Rx] Past Medical History HEENT History: Reports: Other (See Below) Other HEENT History: teeth missing, caries Cardiovascular History: Reports: Heart Murmur, Hypertension - Past Surgical History HEENT Surgical History: Reports: Eye Surgery, Oral Surgery, Tonsillectomy Female Surgical History: Reports: Hysterectomy Social & Family History - Family History Family Medical History: No Pertinent Family History - Tobacco Use Tobacco Use Status *Q: Current Every Day Tobacco User Years of Tobacco use: 20 Packs/Tins Daily: 1 - Caffeine Use Caffeine Use: Reports: Coffee - Alcohol Use Days Per Week of Alcohol Use: 7 Number of Drinks Per Day: 8 Total Drinks Per Week: 56 - Recreational Drug Use Recreational Drug Use: No - Living Situation & Occupation Living situation: Reports: Single, with Significant Other (Boyfriend) 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 ED EXAM, GENERAL - Physical Exam Exam: See Below Exam Limited By: No Limitations General Appearance: Alert, WD/WN, No Apparent Distress Nose: Normal Inspection Throat/Mouth: Normal Inspection, Normal Lips, Normal Teeth, Normal Gums, Normal Oropharynx, Normal Voice, No Airway Compromise Head: Atraumatic, Normocephalic Neck: Normal Inspection Respiratory/Chest: No Respiratory Distress, Lungs Clear, Normal Breath Sounds, No Accessory Muscle Use, Chest Non-Tender Cardiovascular: Normal Peripheral Pulses, Regular Rate, Rhythm, No Edema Peripheral Pulses: 2+: Radial (L), Radial (R) Extremities: Normal Inspection, Normal Capillary Refill Neurological: Alert, Oriented, Normal Cognition, No Motor/Sensory Deficits Psychiatric: Normal Affect, Normal Mood Skin Exam: Warm, Dry, Intact, Normal Color, No Rash Course - Vital Signs Last Recorded V/S: Last Vital Signs Temp 95.7 F L 08/15/20 10:57 Pulse 65 08/15/20 10:57 Resp 16 08/15/20 10:57 BP 145/83 H 08/15/20 10:57 Pulse Ox 100 08/15/20 10:57 - Orders/Labs/Meds Orders: Active Orders 24 hr Category Date Time Status Peripheral IV Care [RC] . DIRECTED Care 08/15/20 11:37 Ordered Sodium Chloride 0.9% [Saline Flush] Med 08/15/20 11:37 Ordered 10 ml FLUSH ASDIRECTED PRN Peripheral IV Insertion Adult [OM.PC] Routine Oth 08/15/20 11:36 Ordered Medication Orders Sodium Chloride (Sodium Chloride 0.9% 10 Ml Syringe) 10 ml FLUSH ASDIRECTED PRN PRN Reason: Keep Vein Open Labs: Laboratory Tests 08/15/20 08/15/20 Range/Units 11:53 11:53 WBC 9.03 (3.98-10.04) K/mm3 RBC 3.68 L (3.98-5.22) M/mm3 Hgb 11.8 (11.2-15.7) gm/dl Hct 35.0 (34.1-44.9) % MCV 95.1 H D (79.4-94.8) fl MCH 32.1 (25.6-32.2) pg MCHC 33.7 (32.2-35.5) g/dl RDW Std Deviation 39.3 (36.4-46.3) fL Plt Count 226 (182-369) K/mm3 MPV 9.6 (9.4-12.3) fl Neut % (Auto) 71.8 H (34.0-71.1) % Lymph % (Auto) 19.2 L (19.3-51.7) % [place] % (Auto) 7.4 (4.7-12.5) % Eos % (Auto) 1.0 (0.7-5.8) Baso % (Auto) 0.6 (0.1-1.2) % Neut # (Auto) 6.49 H (1.56-6.13) K/mm3 Lymph # (Auto) 1.73 (1.18-3.74) K/mm3 [place] # (Auto) 0.67 H (0.24-0.36) K/mm3 Eos # (Auto) 0.09 (0.04-0.36) K/mm3 Baso # (Auto) 0.05 (0.01-0.08) K/mm3 Sodium 134 L (136-145) mEq/L Potassium 4.5 (3.5-5.1) mEq/L Chloride 96 L (98-107) mEq/L Carbon Dioxide 27 (21-32) mEq/L Anion Gap 15.5 H (5-15) BUN 25 H (7-18) mg/dL Creatinine 1.2 H (0.55-1.02) mg/dL Est Cr Clr Drug Dosing 43.91 mL/min Estimated GFR (MDRD) 46 (>60) mL/min BUN/Creatinine Ratio 20.8 H (14-18) Glucose 120 H (74-106) mg/dL Calcium 9.7 (8.5-10.1) mg/dL Total Bilirubin 0.5 (0.2-1.0) mg/dL AST 46 H (15-37) U/L ALT 60 H (14-59) U/L Alkaline Phosphatase 117 H (46-116) U/L Total Protein 9.7 H (6.4-8.2) g/dl Albumin 4.4 (3.4-5.0) g/dl Globulin 5.3 gm/dL Albumin/Globulin Ratio 0.8 L (1-2) Meds: Medications Generic Name Dose Route Start Last Admin Trade Name Freq PRN Reason Stop Dose Admin Sodium Chloride 10 ml 08/15/20 11:37 Sodium Chloride 0.9% 10 Ml Syringe FLUSH ASDIRECTED PRN Keep Vein Open - Re-Assessments/Exams Free Text/Narrative Re-Assessment/Exam: 08/15/20 11:37 Patient presents to the ER for her cold-like symptoms. For today's purposes we will get some basic labs, and take a chest x-ray to see if this has developed into pneumonia versus bronchitis in nature. 08/15/20 12:39 Patient's labs demonstrate no acute change in her CBC, metabolic panel demonstrates possible dehydration, patient will be discharged home and be told to increase oral fluid intake, we will start her on amoxicillin for ongoing sinus infection at this time. Departure - Departure Time of Disposition: 12:40 Disposition: Home, Self-Care 01 Condition: Good Clinical Impression: Sinusitis Qualifiers: Sinusitis location: unspecified location Chronicity: acute Recurrence: non-recurrent Qualified Code(s): J01.90 - Acute sinusitis, unspecified - Discharge Information *PRESCRIPTION DRUG MONITORING PROGRAM REVIEWED*: No *COPY OF PRESCRIPTION DRUG MONITORING REPORT IN PATIENT JEN: No Instructions: Sinusitis, Adult, [id number] Forms: ED Department Discharge Additional Instructions: You were evaluated in the ER today for your nasal congestion. Laboratory evaluation did demonstrate that you are slightly dehydrated, this is likely the cause of your syncopal type feelings as well. Nasal congestion/chest congestion is thought to likely to be a bacterial sinus infection, you will be placed on amoxicillin, 1 tablet 3 times a day for the next 10 days. This antibiotic can take up to 48 hours to start taking effect, if you do not notice results in roughly 72 to 96 hours, highly recommend you follow-up with your regular care provider for further management and evaluation. This medication was electronically sent to the [facility] located on [address]. You may continue to use the Coricidin HBP for ongoing cold-like symptoms. Please return to the ER at any time if symptoms change or worsen Sepsis Event Note (ED) - Evaluation Sepsis Screening Result: No Definite Risk - Focused Exam Vital Signs: Vital Signs Temp Pulse Resp BP Pulse Ox 08/15/20 10:57 95.7 F L 65 16 145/83 H 100 - My Orders Last 24 Hours: My Active Orders 08/15/20 11:36 Peripheral IV Insertion Adult [OM.PC] Routine 08/15/20 11:37 Peripheral IV Care [RC] . DIRECTED Sodium Chloride 0.9% [Saline Flush] 10 ml FLUSH ASDIRECTED PRN - Assessment/Plan Last 24 Hours: My Active Orders 08/15/20 11:36 Peripheral IV Insertion Adult [OM.PC] Routine 08/15/20 11:37 Peripheral IV Care [RC] . DIRECTED Sodium Chloride 0.9% [Saline Flush] 10 ml FLUSH ASDIRECTED PRN
--- NOTE | 2020-08-15 12:05 | CR ---
Chest: PA and lateral views of the chest were obtained. Comparison: Prior chest x-ray of 06/26/17. Heart size and mediastinum are within normal limits. Lungs are clear with no acute parenchymal change. No acute osseous finding is appreciated. Impression: 1. Nothing acute is seen on 2 view chest x-ray. 2. No change is seen from previous chest x-ray. Diagnostic code #1
== END 2020-08-15 13:09 | disposition home or self-care (01) ==
LOC: JD.ED 10:56
DX: J01.90 Acute sinusitis, unspecified (principal); I10 Essential (primary) hypertension; Z88.1 Allergy status to other antibiotic agents; Z72.0 Tobacco use; Z79.899 Other long term (current) drug therapy
CPT/HCPCS: 36415; 71046; 71046-26; 80053; 85025; 99283; 99284-25